=== PATIENT | female | born 1945 | race Caucasian/White ===

== ENCOUNTER 2016-09-13 13:13 | Outpatient (CLI) | payer OTHER ==
[2015-10-28 18:19] VITALS: BP 115/68
[2016-09-13 13:29] LABS: BASOPHILS % 0.4 (0.0-1.5); EOSINOPHILS % 1.7 % (0.0-6.8); LYMPHOCYTES # 2.4 # k/uL (0.6-4.0); MONOCYTES # 0.4 # k/uL (0.0-0.9); NEUTROPHILS # 4.4 # k/uL (1.4-7.7)
[2016-09-14 00:41] LABS: TOTAL PROTEIN 7.1 g/dL (6.0-8.5)
== END 2016-09-13 13:20 ==
LOC: LAB 13:13
PROVIDERS: ATTEND Nurse Practitioner Family
DX: Z51.81 Encounter for therapeutic drug level monitoring (principal); Z79.01 Long term (current) use of anticoagulants; I48.91 Unspecified atrial fibrillation
CPT/HCPCS: 36415; 80053; 80061; 85025; 85610

== ENCOUNTER 2016-11-24 13:25 | Outpatient (CLI) | payer OTHER ==
[2015-10-28 18:19] VITALS: BP 115/68
== END 2016-11-24 13:26 ==
LOC: LAB 13:25
PROVIDERS: ATTEND Family Medicine
DX: Z51.81 Encounter for therapeutic drug level monitoring (principal); Z79.01 Long term (current) use of anticoagulants; I48.91 Unspecified atrial fibrillation
CPT/HCPCS: 36415; 85610

== ENCOUNTER 2016-12-01 12:38 | Outpatient (CLI) | payer OTHER ==
[2015-10-28 18:19] VITALS: BP 115/68
== END 2016-12-01 12:40 ==
LOC: LAB 12:38
PROVIDERS: ATTEND Family Medicine
DX: Z51.81 Encounter for therapeutic drug level monitoring (principal); Z79.01 Long term (current) use of anticoagulants; I48.91 Unspecified atrial fibrillation
CPT/HCPCS: 36415; 85610

== ENCOUNTER 2016-12-26 11:09 | Outpatient (CLI) | payer OTHER ==
[2015-10-28 18:19] VITALS: BP 115/68
== END 2016-12-26 11:10 ==
LOC: LAB 11:09
PROVIDERS: ATTEND Nurse Practitioner Family
DX: Z51.81 Encounter for therapeutic drug level monitoring (principal); Z79.01 Long term (current) use of anticoagulants; I48.91 Unspecified atrial fibrillation
CPT/HCPCS: 36415; 85610

== ENCOUNTER 2017-01-22 08:10 | Outpatient (CLI) | payer OTHER ==
[2015-10-28 18:19] VITALS: BP 115/68
== END 2017-01-22 08:11 ==
LOC: LAB 08:10
PROVIDERS: ATTEND Family Medicine
DX: I48.91 Unspecified atrial fibrillation (principal); Z51.81 Encounter for therapeutic drug level monitoring
CPT/HCPCS: 36415; 85610

== ENCOUNTER 2018-11-14 11:26 | Outpatient (CLI) | payer OTHER ==
[2015-10-28 18:19] VITALS: BP 115/68
--- NOTE | 2018-11-24 12:07 | CONSULTATION REPORT ---
SUBJECTIVE: The patient is referred for evaluation of a possible inguinal hernia. The patient has had intermittent episodes of pain or discomfort. However, she denies any pain or discomfort in this area at present. She denies any swelling or bulge that she has noticed. She has not had any previous abdominal surgeries except a laparoscopic cholecystectomy. OBJECTIVE: On physical examination, the patient appears comfortable. Her blood pressure is 125/66. Pulse is 85/minute. Temperature is 98. Abdomen is soft, nontender. No masses palpable. No evidence of an inguinal hernia. No evidence of ventral hernia. Extremities: No cyanosis or pedal edema. ASSESSMENT/PLAN: Ms. Weiss is a 73-year-old female who presented with nonspecific discomfort in the left groin. No evidence to suggest any inguinal hernia or any femoral hernia. I simply reassured her. Follow up in the clinic as needed. MARY
== END 2018-11-14 11:50 ==
LOC: OUT 11:26 → OPSURG 11:26 → EDSTATUS 12:00
PROVIDERS: ATTEND Surgery
DX: R10.84 Generalized abdominal pain (principal)
CPT/HCPCS: 99202